=== PATIENT | female | born 1960 | race Caucasian/White ===

== ENCOUNTER → 2024-02-01 12:31 | Outpatient (REF) | payer OTHER, SELFPAY | LOC: HWWDC 12:31 | PROVIDERS: ATTENDING PHYSICIAN Obstetrics & Gynecology; FAMILY PHYSICIAN Family Medicine | DX: Z12.31 Encounter for screening mammogram for malignant neoplasm of breast (principal) | CPT/HCPCS: 77063; 77067 ==

== ENCOUNTER 2024-06-23 05:09 | Inpatient (IN) | payer OTHER, SELFPAY ==
[2024-06-23] VITALS (8 sets, daily range): BP systolic 108–140; BP diastolic 60–88; BMI 30.7; BMI 29.8
[2024-06-23] MEDS: PROTONIX IV 40 MG IV (02:53)
[2024-06-23] MEDS: ZOFRAN 4 MG IV (02:53)
[2024-06-23] MEDS: DILAUDID 0.5 MG IV (02:54)
[2024-06-23 02:59] LABS: Hemoglobin 13.1 g/dL (12.0-16.0); Mean Corp Hgb Conc. 32.8 g/dL (33.0-37.0); Mean Corpuscular Hgb 26.4 pg (27.0-31.0); Mean Corpuscular Volume 80.5 fL (81.0-99.0); Mean Platelet Volume 10.3 fL (7.4-10.4); Platelet Count 240 10^3/uL (130-400); Red Blood Cell Count 4.97 10^6/uL (4.20-5.40); Red Cell Dist. Width 15.8 % (11.5-14.5)
[2024-06-23 03:05] LABS: ALT (SGPT) 364 U/L (0-35); AST (SGOT) 371 U/L (14-36); Albumin 4.4 g/dl (3.5-5.0); Alkaline Phosphatase 142 U/L (38-126); Blood Urea Nitrogen 15 mg/dl (7-17); Calcium 9.3 mg/dl (8.4-10.2); Carbon Dioxide 27 mmol/L (22-30); Chloride 105 mmol/L (98-107); Estimated Creatinine Clearance 64 ml/min; Glucose 145 mg/dl (70-99); Lipase 169 U/L (23-300); Potassium 3.6 mmol/L (3.5-5.1); Sodium 143 mmol/L (135-145); Total Bilirubin 1.3 mg/dl (0.2-1.3); Total Protein 6.7 g/dl (6.3-8.2); eGFR > 60.00
[2024-06-23 03:16] LABS: Troponin I < 0.012 ng/ml
--- NOTE | 2024-06-23 03:17 | ED.GENMED ---
History of Present Illness
General
Chief Complaint: Abdominal Pain
Source: patient and spouse
Exam Limitations: none
Time Seen by Provider: 06/23/24 02:38
Nursing documentation reviewed up to this point in time: agreed with
History of Present Illness
History of Present Illness:
This is a 64-year-old woman who complains of severe epigastric abdominal pain that has been intermittent in nature over the past year or more. She admits to similar perhaps 3 or 4 similar episodes over the past year most occurring abruptly at
nighttime with onset of severe epigastric abdominal pain, gnawing and severe in nature. These episodes have been worsening over this past week with a severe episode Tuesday night, June 20, which lasted throughout most of the night. She
followed up with her primary care physician the following day, June 21 and thought was for acid reflux and recommended an upper GI which is scheduled for next June 29.
Pain recurred tonight around 9:30 PM and has been severe, constant, unrelieved after eating two pieces of bread. Epigastric pain radiates to her back, accompanied with brief diaphoresis and she admits to feeling somewhat restless but no nausea nor
vomiting.
She has history of known gallstones, incidental finding on imaging for kidney stones.
She denies chest pain, no shoulder pain, no cough no shortness of breath but does admit that epigastric pain is worse when she takes a deep breath.
Throughout the year she is also noted that her bra seems somewhat tighter across her upper abdomen/lower chest region.
She denies diarrhea or constipation, no dysuria no urgency or hematuria, no flank pain.
She had a small piece of cheese stromboli with sausage for dinner tonight.
Past History
Past History
ED Past Medical History: Cancer (CLL-has not required treatment. Is monitored by Dr. Maciel), HTN, Other (Basilar artery fenestration, kidney stones, irritable bowel syndrome, arthritis, impaired vision) and Other (gallstones)
ED Past Surgical History: Urological (Lithotripsy for kidney stones) and Other ([place] teeth extraction, colonoscopy)
Social History
Tobacco: Non-smoker
Alcohol: None
Drug: None
Personal:
Living: with family
Employment: Employed
Family History
Family History: Other (Noncontributory)
Phy Exam
Physical Exam
Physical Exam:
GENERAL: 64-year-old woman appears her stated age, awake and alert, pleasant, appears mildly to moderately uncomfortable. Easily communicative. is accompanying.
EYE: anicteric
NECK: Supple, nontender, no meningismus, no significant adenopathy.
ENT: oral mucosa is moist. No rhinorrhea.
CARDIAC: Regular rate and rhythm. no murmur.
LUNGS: Clear breath sounds bilaterally, no acute respiratory distress, no wheezes/rales/rhonchi
ABDOMEN: Soft, nondistended, moderate tenderness epigastric region as well as mild tenderness right upper quadrant, no r/g, no cvat. normoactive BS.
NEUROLOGICAL: Alert and oriented x3, no focal neuro deficits. Gait is gutierrez and steady.
SKIN: Warm and dry, normal color, skin intact. No rash.
MUSCULOSKELETAL: No C/C/E. peripheral pulses are full and equal b/l. No palpable tenderness.
PSYCH: Normal and appropriate interaction.
Course
Orders/Labs/Results
Orders:
Orders
06/23/24 01:38
Electrocardiogram (*1) Urgent
Reason for Study: Abdominal Pain
EKG- Treatment ONCE
06/23/24 02:36
Complete Blood Count/With Diff Urgent
Comprehensive Metabolic Panel Urgent
Lipase Urgent
Troponin I Urgent
06/23/24 02:48
HYDROmorphone [Dilaudid] 0.5 mg IV NOW STA
Ondansetron Injectable [Zofran] 4 mg IV NOW STA
Pantoprazole [Protonix IV] 40 mg IV NOW STA
06/23/24 02:49
US Abdomen Complete/Upper Urgent
Comment:
Reason For Exam: acute epigastric to RUQ pain-severe
Abnormal Lab Results
06/23/24
02:36
WBC 17.0 H 10^3/uL
(4.8-10.8)
MCV 80.5 L fL
(81.0-99.0)
MCH 26.4 L pg
(27.0-31.0)
MCHC 32.8 L g/dL
(33.0-37.0)
RDW 15.8 H %
(11.5-14.5)
Abs Immat Gran (auto) 0.1 H 10^3/uL
(0-0.05)
Absolute Neuts (auto) 6.6 H 10^3/uL
(1.4-6.5)
Absolute Lymphs (auto) 9.5 H 10^3/uL
(1.2-3.4)
Absolute Monos (auto) 0.7 H 10^3/uL
(0.1-0.6)
Neutrophils % 39.1 L %
(42.2-75.2)
Lymphocytes % 55.8 H %
(20.5-51.1)
Glucose 145 H mg/dl
(70-99)
AST 371 H U/L
(14-36)
ALT 364 H U/L
(0-35)
Alkaline Phosphatase 142 H U/L
(38-126)
06/23/24 02:36
06/23/24 02:36
Vital Signs
Initial and Last Documented VS:
Initial Vital Signs
Temp Pulse Resp BP Pulse Ox
97.7 F 69 18 137/80 99
06/23/24 01:33 06/23/24 01:33 06/23/24 01:33 06/23/24 01:33 08/31/24 01:33
Last Documented Vital Signs
Temp Pulse Resp BP Pulse Ox
97.7 F 76 12 108/60 95
06/23/24 01:33 06/23/24 04:19 06/23/24 03:45 06/23/24 04:06 06/23/24 04:06
MDM/Problems Addressed
Differential Diagnosis Includes:
Concern for biliary colic, cholecystitis, gastritis, GERD, peptic ulcer disease, pancreatitis. ACS is also a possibility but less likely.
Will medicate for pain, nausea, initiate IV fluids.
EKG is unremarkable.
Labs are pending including troponin, lipase, LFTs.
Will check abdominal ultrasound.
Chronic conditions affecting care: HTN
*Radiology
Radiology exam reviewed: radiology read reviewed
*Pulse Oximetry
Patient hypoxic: no
*EKG
Interpreted by ED Provider?: Yes
Interpretation: normal
Comparison EKG: no changes (Unchanged from previous April 2020)
Rate: normal
Rhythm: sinus
Perry: normal axis
Interval: normal interval
QRS Pattern: normal QRS
Ischemia: no ischemia
*Pathology Teacher Interpretation
Rate: normal
Interpretation: normal
Rhythm: sinus
*Critical Care Note
Total Time (30-74mins, 75-104mins- exclusive of procedures): Not Applicable
Update Note
Update Note:
06/23/2024 0420 AM
Ultrasound shows cholelithiasis with wall thickening to 4 mm suspicious for cholecystitis. Negative Patino sign.
Patient is much more comfortable after IV Dilaudid but does continue with some epigastric and right upper quadrant tenderness to palpation.
Labs are remarkable for moderately elevated LFTs to the high 300s, mildly elevated alkaline phosphatase and normal bilirubin at 1.3.
Moderately elevated white blood cell count of 17 but patient has history of CLL, chronically elevated WBC. Has not required treatment for CLL, just monitoring and follows with Dr. Maciel.
I have significant concern for cholecystitis. Will consult general surgery.
06/23/2024 0427 AM
Case discussed with general surgery. Due to history of CLL, hypertension recommends admission to hospitalist service will evaluate and consult. Will initiate IV antibiotics for coverage of potential cholecystitis.
Patient notes penicillin allergy causing a rash but has had cephalosporins in the past without incident. Will initiate Cefotan.
ED Attending Note
-
Portions of this chart may have been created with voice recognition software.� Occasional wrong word or��sound alike� substitutions may have occurred due to the inherent limitations of voice recognition software.
Discharge Plan
Departure
Patient Disposition: Admit
Date of Disposition: 06/23/24
Time of Disposition: 04:33
Admit to doctor: Thomas
Presentation/result/management discussed w/ accepting MD/DO: Hospitalist
Condition: Fair
Discharge Problem:
Acute calculous cholecystitis, Chronic lymphocytic leukemia
Prescriptions:
No Action
amlodipine 2.5 MG tablet
5 mg PO DAILY
Patient Comments:
ran out today 07/24/14
aspirin 81 MG tablet,delayed release (DR/EC)
81 mg PO DAILY
lisinopril 2.5 MG tablet
5 mg PO DAILY
Patient Comments:
pt took 5 mg 07/24/14
cholecalciferol (vitamin D3) [Vitamin D3] 1,000 UNIT tablet
1,000 unit PO DAILY
FOLic ACID
1 cap PO DAILY
ondansetron HCl 4 MG tablet
4 mg PO Q8HPRN PRN (Reason: for vomiting) Qty: 14 0RF
tamsulosin 0.4 MG capsule
0.4 mg PO DAILY Qty: 10 0RF
oxycodone-acetaminophen 1 TABLET tablet
1 - 2 tab PO Q4HPRN PRN (Reason: prn for pain) Qty: 20 0RF
Referrals:
Luis Cook MD [Family Provider] -
Interventions
Interventions:
*Risk Screen - Suicide Last Done: 06/23/24 01:33
*Neglect/Abuse Screening Last Done: 06/23/24 01:33
ED- Fall Risk Assessment Last Done: 06/23/24 03:19
*ED COVID-19 Vaccine History Last Done: 06/23/24 01:33
RG-Mrqzzf-Ercrdrhqxp Assessment Last Done: 06/23/24 03:19
Discharge Date and Time
Print Language: EMIRATI
[2024-06-23 03:21] LABS: % Basophils 0.3 % (0-2); % Eosinophils 0.4 % (0-6); % Immature Granulocytes 0.4 % (0-0.5); % Lymphocytes 55.8 % (20.5-51.1); % Neutrophils 39.1 % (42.2-75.2); Absolute Basophils 0.1 10^3/uL (0-0.2); Absolute Eosinophils 0.1 10^3/uL (0-0.7); Absolute Immature Granulocytes 0.1 10^3/uL (0-0.05); Absolute Lymphocytes 9.5 10^3/uL (1.2-3.4); Absolute Monocytes 0.7 10^3/uL (0.1-0.6); Absolute Neutrophils 6.6 10^3/uL (1.4-6.5); Nucleated Red Blood Cells % 0 %
--- NOTE | 2024-06-23 04:34 | HPS.HSE ---
Family Physician
-
Family Physician: Luis Cook
Chief Complaint
-
intermittent epigastric abdominal pain
History of Present Illness
HPI
64F HX CLL, not on active Tx , HX cholelithiais seen at ER for evalaution of intermittent epigastric abdominal pain for past yrs .
- 3 or 4 similar episodes over the past year
- occurring abruptly at nighttime with onset of severe epigastric abdominal pain, aching and severe in nature.
- episodes have been worsening over this past week with a severe episode Tuesday night, June 20
Seen by PCP on June 21 and thought was for acid reflux and recommended an upper GI which is scheduled for next Tuesday, June 29.
Medical History
Past Medical History
Past Medical History: Reports Other
Additional Past Medical History:
CLL-has not required treatment. Is monitored by Dr. Maciel), HTN, Other (Basilar artery fenestration, kidney stones, irritable bowel syndrome, arthritis, impaired vision) and Other (gallstones)
Past Surgical History: Reports Other
Additional Past Surgical History:
Urological (Lithotripsy for kidney stones) and Other ([place] teeth extraction, colonoscopy)
Social History
Tobacco: Non-smoker
Personal:
Living: With Family
Family History
Family History: Not pertinent
Allergies / Home Medications
Allergies reflects when Allergies were last updated in [employer].
Home Medications with original date entered in [employer]
Allergy/Medication List:
Allergies
Allergy/AdvReac Type Severity Reaction Status Date / Time
amoxicillin trihydrate Allergy Rash, Verified 06/23/24 01:33
[From Amoxil] itching
environmental Allergy congestion Uncoded 06/23/24 01:33
Home Medications
amlodipine 2.5 mg tablet 5 mg PO DAILY 07/24/14
aspirin 81 mg tablet,delayed release 81 mg PO DAILY 07/24/14
famotidine 40 mg tablet 40 mg PO DAILY 06/23/24
lisinopril 10 mg tablet 10 mg PO DAILY 06/23/24
Review of Systems
-
Constitutional: Reports No Symptoms
EENT: Reports No Symptoms
Respiratory: Reports No Symptoms
Cardiac: Reports No Symptoms
Abdomen/GI: Reports See HPI and Abdominal Pain
: Reports No Symptoms
Musculoskeletal: Reports No Symptoms
Skin: Reports No Symptoms
Neurological: Reports No Symptoms
Endocrine: Reports No Symptoms
Hematologic/Lymphatic: Reports No Symptoms
Psych: Reports No Symptoms
Physical Exam
Vital Signs
Vital Signs
Temp Pulse Resp BP Pulse Ox
97.7 F 76 12 108/60 95
06/23/24 01:33 06/23/24 04:19 06/23/24 03:45 06/23/24 04:06 06/23/24 04:06
Physical Exam
General: Well Developed, Well Nourished and No Apparent Distress
HEENT: NormoCephalic, Moist mucous membranes and Atraumatic
Respiratory: Clear
Cardiac: S1/S2 and Regular Rhythm; No Murmur or Rub
Breast: Deferred by me
GI: Soft, Non Distended and Tender ( mild tenderness right upper quadrant, no r/g, no cvat. normoactive BS.)
Rectal: Deferred by Provider
Genito-urinary: Deferred by me
Musculoskeletal: No Clubbing, No Cyanosis and No Edema
Skin: No Rash
Neuro: Nonfocal/grossly intact
Psych: Calm and Intact Judgment/Insight
Laboratory Results
-
06/23/24 02:36
06/23/24 02:36
Laboratory Results
Total Bilirubin 1.3 mg/dl (0.2-1.3) 06/23/24 02:36
AST 371 U/L (14-36) H 06/23/24 02:36
ALT 364 U/L (0-35) H 06/23/24 02:36
Alkaline Phosphatase 142 U/L (38-126) H 06/23/24 02:36
Troponin I < 0.012 ng/ml 06/23/24 02:36
Lipase 169 U/L (23-300) 06/23/24 02:36
Data Reviewed
-
Ultrasound: Report Reviewed by me
Lab Data: Labs Reviewed by me
Impression/Plan
-
Vital Signs
Temp Pulse Resp BP Pulse Ox
97.7 F 76 12 108/60 95
06/23/24 01:33 06/23/24 04:19 06/23/24 03:45 06/23/24 04:06 06/23/24 04:06
Laboratory Tests
05/21/20 06/23/24
07:39 02:36
WBC 18.7 H 17.0 H
Creatinine 0.9
Total Bilirubin 1.3
AST 371 H
ALT 364 H
Alkaline Phosphatase 142 H
Troponin I < 0.012
U Abdomen:
Cholelithiasis
4mm GBWT suspected acute cholecystitis
NEG Patino sign
ASSESSMENT & PLAN
Significant concern for acute cholecystitis
Noted pain is usually associated with soy cavanaugh oil meals
NEG Patino's
Moderately elevated LFTs to the high 300s plus mildly elevated alkaline phosphatase and normal bilirubin at 1.3.
HX Gall stones
Chr leucocytosis due to CLL
HX PCN allergy causing hives
- Held ASA
- NPO and IVF
- PRN narcotic analgesia
- PRN Anti emetics
- Empiric Cefotan - she tolerates cephalospotin in the past
- HIDA scan in AM
- GS consulted
HX CLL
-has not required treatment.
- monitored by Dr. Maciel
Chr HX:
[facility] HTN: on Amlodipine
Basilar artery fenestration
HX kidney stones
HX irritable bowel syndrome
HX impaired vision
DVT Px: SCD
Code: Full code
IP MS
[2024-06-23] MEDS: CEFOTAN 2000 MG IV (05:06)
[2024-06-23] MEDS: NSS 1000 IV (06:44)
--- NOTE | 2024-06-23 09:38 | CON.GS ---
Addendum entered and electronically signed by Dejon Lainez MD 06/24/24 14:57:
I saw and examined the patient.
The College Associate's note was reviewed and I agree with the note.
Comment: Delayed entry from 06/23/24 - pt normalized by the time of my encounter. Pain free, no ttp. Plan for PO challenge, home if tolerates and outpt f/u.
Original Note:
Consultation
-
Date/Time Consultation Requested: 06/23/24 0602
Requesting Provider: alex
Reason for Consultation: Significant concern for acute cholecystitis
Medical History
-
Chief Complaint: epigastric pain
History of Present Illness:
64 yo female with a h/o CLL (notes last outpt WBC was around 17), HTN, IBS and renal stones who presents with epigastric pain which began last night a few hours after she ate Stromboli for dinner. This is her second episode of severe pain which
began after a high fat meal this week as she had an episode 3 days ago as well. Both of these episodes lasted for about 6-8 hours. After her episode earlier this week, an UGI study was ordered by her PCP to evaluate which she has scheduled in one
week. Over the past year, she has had several episodes of pain lasting about an hour and more mild after higher fat meals and did see Dr. Rajan in evaluation as an outpatient to discuss cholecystectomy. Given the infrequency and mildness of her
episodes of biliary colic, she opted to wait on surgery. She currently denies any pain. She is nontender on exam.
Past Medical History
Past Medical History: Cancer (CLL), HTN and Other (Renal stones, IBS)
Past Surgical History: Gynecological (D&C) and Urological (Lithotripsy)
Social History
Tobacco: Non-Smoker
Alcohol: None
Personal: Single
Family History
Family History: Reviewed & Not Pertinent
Allergies / Home Medications
Allergy/AdvReac Type Severity Reaction Status Date / Time
amoxicillin trihydrate Allergy Rash, Verified 06/23/24 01:33
[From Amoxil] itching
environmental Allergy congestion Uncoded 06/23/24 01:33
�Medication �Instructions �Recorded �Confirmed �Type
amlodipine 2.5 mg tablet 5 mg PO DAILY 07/24/14 06/23/24 History
aspirin 81 mg tablet,delayed 81 mg PO DAILY 07/24/14 06/23/24 History
release
famotidine 40 mg tablet 40 mg PO DAILY 06/23/24 06/23/24 History
lisinopril 10 mg tablet 10 mg PO DAILY 06/23/24 06/23/24 History
Review of Systems
-
History Source: Patient and Family
A 10 point review of systems was completed, and was negative except as per HPI.
Physical Exam
Vital Signs
Temp Pulse Resp BP Pulse Ox
97.9 F 77 16 120/70 100
06/23/24 07:52 06/23/24 07:52 06/23/24 07:52 06/23/24 09:09 06/23/24 07:52
06/22/24 06/23/24 06/24/24
06:59 06:59 06:59
Actual Weight 79.8 kg 77.383 kg
Body Mass Index (BMI) 29.8
Lab Results
06/23/24 02:36
06/23/24 02:36
WBC 17.0 10^3/uL (4.8-10.8) H 06/23/24 02:36
Hgb 13.1 g/dL (12.0-16.0) 06/23/24 02:36
Hct 40.0 % (37.0-47.0) 06/23/24 02:36
Plt Count 240 10^3/uL (130-400) 06/23/24 02:36
Abs Immat Gran (auto) 0.1 10^3/uL (0-0.05) H 06/23/24 02:36
Neutrophils % 39.1 % (42.2-75.2) L 06/23/24 02:36
Physical Exam
General: Well Developed and Well Nourished
HEENT: Moist Mucous Membranes
Respiratory: Non Labored Respirations
GI: Soft, Non Tender and Non Distended
Skin: Warm and Dry
Neuro: Awake, Alert and AO x 3
Psych: Calm
Data Reviewed
-
Ultrasound: Image Personally Visualized and interpreted, Report Reviewed by me, Discussed with Physician, Discussed with Nurse and Discussed with Patient
Labs: Labs Reviewed by me, Discussed with Physician and Discussed with Patient
Old Records: Reviewed
Assessment / Plan
-
64 yo female with a h/o biliary colic who presents with recurrent epigastric pain lasting about 6-8 hours twice this week after higher fat meals. Mild transaminitis present with bilirubin high normal. Leukocytosis stable and in keeping with h/o CLL.
AFVSS. Pain completely resolved currently. US reviewed with some possible mild wall thickening and cholelithiasis noted.
--Given resolution of pain, will plan a PO challenge today with a low fat diet
--If pain recurs, will plan cholecystectomy this presentation; otherwise would continue low fat diet in the outpatient setting and schedule elective surgery on an out patient basis
--- NOTE | 2024-06-23 11:18 | PTCARENOTE ---
Patient admitted from home with cholecystitis.The patient rates her pain at a 1 out of 10 currently.She is awaiting a surgical consult.The patient is in her bed with the call alvarez.
--- NOTE | 2024-06-23 12:09 | W.PN.UPDATE ---
Update Note
Progress Note Update
non-billable addendum
pt admitted 430 AM for biliary colic
so far no pain and tolerated full breakfast, planning for lunch later around 3pm
Assessment:
Biliary colic, acute on chronic
- US: CHOLELITHIASIS and mild diffuse gallbladder wall thickening. New mild intrahepatic and extrahepatic biliary dilatation.
- await full GS recs on any further imaging
- tolerated diet currently; will monitor with next meal
- if stable, will need OP eval for seema vs if symptomatic, might consider inpatient
- for now continue IV Abx
- pain control, anti-emetics
Hx of CLL
- OP f/u with Onc
Essential HTN - continue Amlodipine
DVT ppx: SCDs
Code: Full
--- NOTE | 2024-06-23 12:23 | W.DS.TRANS ---
DC Summary - Sales Administration Specialist
-
Discharge Instructions:
Discharge Diagnosis/Procedures biliary colic
Diet Low Fat
Activity As tolerated
Instructions:
Stand-Alone Forms:
Changes to Home Medications: No
Discharge Medications:
DC Medications w/original date entered in [employer]
amlodipine 2.5 mg tablet 5 mg PO DAILY 07/24/14
aspirin 81 mg tablet,delayed release 81 mg PO DAILY 07/24/14
famotidine 40 mg tablet 40 mg PO DAILY 06/23/24
lisinopril 10 mg tablet 10 mg PO DAILY 06/23/24
tramadol 50 mg tablet 50 mg PO Q6HPRN PRN moderate pain #20 tabs 06/23/24
Home Medication Changes
Pending Results: No
Total time spent discharging patient (in min): 41
--- NOTE | 2024-06-23 12:56 | CM ---
patient seen at bedside with patient . patient for discharge home today. Patient states that they live in a 2 story home and have no DME at home. Patient PCP is Dr. Cook and she uses the [facility] in [place]. Patient reviewed plan for discharge
home and is concerned about patient pain levels while waiting for outpatient procedure. Physician (hospitalist) aware. CM will continue to follow for discharge planning needs.
Plan; home with no needs anticipated.
== END 2024-06-23 14:17 | disposition home or self-care (01) | DRG 445 ==
LOC: 2 SOUTH 05:09
PROVIDERS: ADMITTING PHYSICIAN Internal Medicine; ATTENDING PHYSICIAN Internal Medicine; CONSULT PHYSICIAN Surgery; EMERGENCY PHYSICIAN Emergency Medicine; FAMILY PHYSICIAN Family Medicine
DX: K80.50 Calculus of bile duct without cholangitis or cholecystitis without obstruction (principal); C91.10 Chronic lymphocytic leukemia of B-cell type not having achieved remission; I10 Essential (primary) hypertension
CPT/HCPCS: 76700; 80053; 83690; 84484; 85025; 93005; 96374; 96375; 99285

== ENCOUNTER 2024-08-20 06:24 | Day surgery (SDC) | payer OTHER, SELFPAY ==
[2024-08-20] VITALS (14 sets, daily range): BP systolic 88–129; BP diastolic 56–81; BMI 28.1
[2024-08-20] MEDS: IC GREEN 2.5 MG IV (10:40)
[2024-08-20] MEDS: TYLENOL 1000 MG PO (10:41)
--- NOTE | 2024-08-20 12:58 | W.IMMPOSTOP ---
Surgical Immed Post Op Note
-
Primary Surgeon: Migel
Assisting: Aruna VASQUEZ
Pre-op Diagnosis: Biliary colic
Post-op Diagnosis: Chronic calculous cholecystitis and choledocholithiasis
Procedure Performed: Robot assisted laparoscopic cholecystectomy with cholangiogram
Anesthesia Type: GETA
Specimen / Cultures: Gallbladder
Estimated Blood Loss: 5cc
Complications: None immediate
Operative Findings: Adhesions from anterior right liver lobe to abdominal wall; floppy gallbladder with thickened fibrotic wall and dense omental adhesions; cholangiogram with stone in distal common duct, contrast does make it into duodenum
--- NOTE | 2024-08-20 13:03 | OR.RPT ---
Operative Report
Operative Report
Primary Surgeon: Migel
Assisting: Aruna VASQUEZ
Pre-op Diagnosis: Biliary colic
Post-op Diagnosis: Chronic calculous cholecystitis and choledocholithiasis
Procedure Performed: Robot assisted laparoscopic cholecystectomy with cholangiogram
Anesthesia Type: GETA
Specimen / Cultures: Gallbladder
Estimated Blood Loss: 5cc
Complications: None immediate
Operative Findings: Adhesions from anterior right liver lobe to abdominal wall; floppy gallbladder with thickened fibrotic wall and dense omental adhesions; cholangiogram with stone in distal common duct, contrast does make it into duodenum
Date of Surgery:� 08/20/24
Indications: This 64M developed right upper quadrant pain. Work-up showed gallstones, elevated liver enzymes and no ductal dilation. Laparoscopic cholecystectomy with robotic assist and cholangiogram was elected.
Description of procedure: The patient was placed on the operating table in the supine position. General anesthesia was induced. A time-out was completed verifying correct patient, procedure, site, positioning, and special equipment prior to
beginning this procedure. An orogastric tube was placed. The abdomen was prepped and draped in the usual sterile fashion. A stab incision was made in left upper quadrant and the Veress needle was inserted. Proper position was confirmed by aspiration
and saline meniscus test. The abdomen was insufflated with carbon dioxide to a pressure of 12mmHg. The patient tolerated insufflation well.
A 8mm trocar was then inserted above the umbilicus. The laparoscope was inserted and the abdomen inspected. No injuries from initial trocar placement or Veress needle insertion were noted. Additional 8mm trocars were then inserted in the following
locations: two in the right lower quadrant and to the left of the umbilicus and just above. The abdomen was inspected and no abnormalities were found. The table was placed in the reverse Trendelenburg position with the right side up. The dome of the
gallbladder was grasped with an atraumatic grasper and retracted over the dome of the liver. Thin omental adhesions were carefully taken down with blunt dissection and hook cautery. The infundibulum was then grasped with an atraumatic grasper and
retracted toward the right lower quadrant. This maneuver exposed Calot�s triangle. The peritoneum overlying the gallbladder infundibulum was then incised and the cystic duct and cystic artery identified and circumferentially dissected so that a
clear view of the liver was achieved through a window between the cystic duct an cystic artery. At this time, the only two structures going into the gallbladder were the cystic artery and cystic duct.
A georgette was made in the cystic duct and a cholangiogram catheter was passed through a georgette in the abdominal wall and threaded into the cystic duct and secured with a 2-0 silk tie. Cholangiogram obtained showing flow of bile into hepatic radicals and
duodenum, in the distal common duct there was a rather large filling defect. The catheter was removed.
The cystic duct was then doubly clipped and divided. The cystic artery was controlled with bipolar and divided. The gallbladder was then dissected from its peritoneal attachments by electrocautery. The gallbladder was removed using an endoscopic
retrieval bag placed through the umbilical port. The gallbladder was passed off the table as a specimen. The gallbladder fossa was closely inspected. There was no evidence of bleeding from the gallbladder fossa or cystic artery or leakage of the
bile from the cystic duct stump. The umbilical trocar site was closed at the fascial level with 2-0 PDS. Secondary trocars were removed under direct vision and noted to be hemostatic. The abdomen was allowed to collapse. The skin was closed with
subcuticular sutures of 4-0 monocryl and topical skin adhesive. The orogastric tube was removed.
The patient tolerated the procedure well and was taken to the postanesthesia care unit in stable condition.
--- NOTE | 2024-08-20 13:47 | CON.GI ---
Consultation
-
Date/Time Consultation Performed: 08/20/24
Performing Provider: Elpidio Saucedo MD
Reason for Consultation: CBD stone
Medical History
Chief Complaint / HPI
Chief Complaint: CBD stone
History of Present Illness:
The patient is a 64-year-old female with past medical history as noted who presented today for outpatient cholecystectomy. She had uneventful cholecystectomy though had intraoperative cholangiogram that showed CBD stone. She was here in the summer
with biliary colic, at that time ultrasound noted dilated CBD and hepatic ducts with mildly elevated LFTs. She been doing well overall with occasional biliary colic. Otherwise has been doing well from a GI standpoint. She has been up-to-date with
her colonoscopy with no issues by report. Denies any chest pain or shortness of breath. Currently in PACU she is feeling well with only mild incisional discomfort.
Past Medical History
Past Medical History: Other (CLL which has been stable, hypertension, basilar artery fenestration, kidney stones, irritable bowel syndrome, arteritis)
Past Surgical History: Other (Cholecystectomy, lithotripsy for kidney stones, was in a tooth extraction)
Social History
Tobacco: Non-Smoker
Family History
Family History: Reviewed & Not Pertinent
Allergies / Home Medications
Allergy/AdvReac Type Severity Reaction Status Date / Time
amoxicillin trihydrate Allergy Rash, Verified 08/20/24 10:20
[From Amoxil] itching
pollen extracts Allergy Rhinitis Verified 08/20/24 10:20
�Medication �Instructions �Recorded
aspirin 81 mg tablet,delayed 81 mg PO DAILY Heart 07/24/14
release Disease/Condition
famotidine 40 mg tablet 40 mg PO PRN PRN Indigestion 06/23/24
lisinopril 10 mg tablet 10 mg PO DAILY Blood Pressure 06/23/24
tramadol 50 mg tablet 50 mg PO Q6HPRN PRN moderate pain 06/23/24
#20 tabs
amlodipine 5 mg tablet 5 mg PO DAILY 08/16/24
oxycodone 5 mg tablet 5 - 10 mg (1 - 2 x 5 mg) PO Q4HPRN 08/20/24
PRN moderate to severe pain #20
tabs
Review of Systems
-
All other systems: A 12 pt ROS was Negative except as stated above in HPI
Vital Signs
Temp Pulse Resp BP Pulse Ox
97.4 F 78 23 98/60 100
08/20/24 13:06 08/20/24 13:08 08/20/24 13:08 08/20/24 13:08 08/20/24 13:08
Physical Exam
Exam
General: NAD
HEENT: MMM, anicteric, no lymphadenopathy
Heart: Regular, no murmurs
Lungs: CTA bilaterally
Abdomen: normal bowel sounds, soft, no tenderness, no rebound or guarding, no masses, bruits or ascites, incisions clean, dry and intact
Extremeties: no edema
Skin: no rashes
Results
Diagnostic Image Results:
US 06/16:
IMPRESSION:
1. CHOLELITHIASIS and mild diffuse gallbladder wall thickening.
2. New mild intrahepatic and extrahepatic biliary dilatation.
Prior GI Procedures:
EGD:
Colonoscopy:
Assessment / Plan
-
1. CBD stone: Noted on intraoperative cholangiogram, overall doing well now postoperatively. We will plan ERCP tomorrow. We discussed risks and benefits at length including pancreatitis.
-
-
Thank you for consultation and allowing me to participate in the patient's care. Please call the air defense control officer GI physician during the after hours with any questions or concerns.
--- NOTE | 2024-08-20 14:54 | PTCARENOTE ---
Pt arrived to 2 [facility] PACU s/p lap seema with cholangiogram. Pt AAOx3, 6 lap sites all C/D/I. Pt states mild pain at this time. Oriented to call alvarez and room, bed locked and in lowest position, call alvarez within reach.
[2024-08-20] MEDS: TYLENOL 650 MG PO ×2 (15:02→21:47)
[2024-08-20 17:23] LABS: ALT (SGPT) 22 U/L (0-35); AST (SGOT) 42 U/L (14-36); Albumin 4.6 g/dl (3.5-5.0); Alkaline Phosphatase 70 U/L (38-126); Blood Urea Nitrogen 13 mg/dl (7-17); Calcium 8.8 mg/dl (8.4-10.2); Carbon Dioxide 25 mmol/L (22-30); Chloride 104 mmol/L (98-107); Direct Bilirubin 0.2 mg/dl (0.0-0.4); Estimated Creatinine Clearance 69 ml/min; Glucose 181 mg/dl (70-99); Potassium 3.7 mmol/L (3.5-5.1); Sodium 144 mmol/L (135-145); Total Bilirubin 0.3 mg/dl (0.2-1.3); Total Protein 7.2 g/dl (6.3-8.2); eGFR > 60.00
[2024-08-20 17:26] LABS: INR 1.04; PT 13.4 Sec (11.4-14.6)
[2024-08-20 17:43] LABS: Hematocrit 45.8 % (37.0-47.0); Hemoglobin 14.9 g/dL (12.0-16.0); Mean Corp Hgb Conc. 32.5 g/dL (33.0-37.0); Mean Corpuscular Hgb 27.3 pg (27.0-31.0); Mean Corpuscular Volume 83.9 fL (81.0-99.0); Mean Platelet Volume 10.6 fL (7.4-10.4); Platelet Count 240 10^3/uL (130-400); Red Blood Cell Count 5.46 10^6/uL (4.20-5.40); Red Cell Dist. Width 15.4 % (11.5-14.5); White Blood Cell Count 20.8 10^3/uL (4.8-10.8)
[2024-08-20] MEDS: LOVENOX 40 MG SC (17:52)
[2024-08-21] VITALS (7 sets, daily range): BP systolic 111–137; BP diastolic 66–80
--- NOTE | 2024-08-21 11:33 | PTCARENOTE ---
Pt arrived back to [facility] from PACU s/p ERCP. Pt AAOx3, and states no pain at this time. Informed patient on CLD. Bed locked and in lowest position, call alvarez within reach. Care ongoing.
--- NOTE | 2024-08-21 11:47 | CM ---
Addendum entered by Mary Carter 08/21/24 12:26:
PCP: Luis Cook
Pharmacy: [address], [place]
Original Note:
Met with patient at bedside.
IA completed.
Oupatient - ERCP today
Lives at home in a 2 story home with , no steps to enter, flight of steps to 2nd floor, powder room on 1st floor
PLOF: Independent, no assistive device
No DME
Denies housing/food/utilities/transportation insecurities
no needs anticipated.
PLAN: Home, no needs
to transport
[2024-08-21] MEDS: ROXICODONE 5 MG PO (14:48)
--- NOTE | 2024-08-21 16:14 | W.PN.UPDATE ---
Update Note
Progress Note Update
Pt underwent successful ERCP today. She is feeling well. Per nursing she is requesting DC home. I am in agreement with DC. Instructions provided. Rx sent.
== END 2024-08-21 17:33 | disposition home or self-care (01) ==
LOC: SDS 06:24
PROVIDERS: Internal Medicine Gastroenterology; ATTENDING PHYSICIAN Surgery; CONSULT PHYSICIAN Internal Medicine Gastroenterology
DX: K80.10 Calculus of gallbladder with chronic cholecystitis without obstruction (principal); K66.0 Peritoneal adhesions (postprocedural) (postinfection); R93.2 Abnormal findings on diagnostic imaging of liver and biliary tract
CPT/HCPCS: 47563; 43264; 88304; 74300; 74330; 76000; 80048; 80076; 85027; 85610; A4300; C1769

== ENCOUNTER → 2025-03-27 09:27 | Outpatient (REF) | payer OTHER, SELFPAY | LOC: WDC 09:27 | PROVIDERS: ATTENDING PHYSICIAN Obstetrics & Gynecology | DX: R92.8 Other abnormal and inconclusive findings on diagnostic imaging of breast (principal) | CPT/HCPCS: 76642; 77061; 77065 ==